=== PATIENT | female | born 1980 | race Two or more races ===

== ENCOUNTER 2025-02-10 18:47 | Emergency (ER) | payer OTHER ==
[~2025-02-10] VITALS: Ht 170.2 cm; Wt 54.4 kg
[2025-02-10] MEDS ORDERED: NURTEC ODT75 MG PO (18:58)
[2025-02-10] MEDS ORDERED: MONTELUKAST SODI4 M1 PO (18:59)
[2025-02-10] MEDS ORDERED: WELLBUTRIN SR150 MG PO (18:59)
[2025-02-10] MEDS ORDERED: XYZAL5 MG PO (18:59)
[2025-02-10] MEDS ORDERED: DEXAMETHASONE SODIUM PHOSPHATE 4 MG/ML VIAL IV ONE (19:30)
[2025-02-10] MEDS ORDERED: 0.9 % SODIUM CHLORIDE 1,000 ML IV SCH (19:30)
[2025-02-10] MEDS ORDERED: SUMATRIPTAN SUCCINATE 6 MG/0.5 ML VIAL SUBCUTANEO ONE ×3 (19:30→19:34)
[2025-02-10] MEDS ORDERED: MORPHINE SULFATE 4 MG/ML VIAL IV ONE (19:30)
[2025-02-10] MEDS ORDERED: METOPROLOL TARTRATE 25 MG TABLET PO ONE ×2 (19:30→19:32)
[2025-02-10] MEDS ORDERED: DIPHENHYDRAMINE HCL 50 MG/ML VIAL 1ML IV ONE (19:30)
[2025-02-10] MEDS ORDERED: ONDANSETRON HCL 2 MG/ML VIAL IV ONE (19:30)
[2025-02-10] MEDS ORDERED: DIPHENHYDRAMINE HCL 50 MG/ML VIAL 1ML ONE (19:31)
[2025-02-10] MEDS ORDERED: DEXAMETHASONE SODIUM PHOSPHATE 4 MG/ML VIAL ONE (19:32)
[2025-02-10] MEDS ORDERED: ONDANSETRON HCL 2 MG/ML VIAL ONE (19:32)
[2025-02-10] MEDS ORDERED: ACETAMINOPHEN 500 MG GEL..CAP PO ONE ×2 (19:40→19:45)
[2025-02-10 19:46] LABS: HEMATOCRIT 36.5 % (36.0-45.00); HEMOGLOBIN 12.6 g/dL (12.0-15.00); MEAN CELL VOLUME 91.4 fL (80.00-100.00); MEAN CORPUSCULAR HEMOGLOBIN 31.6 pg (27.00-32.0); MEAN CORPUSCULAR HGB CONC 34.6 g/dl (32.0-36.0); PLATELET COUNT 190 K/uL (150-450); RED BLOOD COUNT 3.99 M/uL (4.00-6.00); RED CELL DISTRIBUTION WIDTH 12.8 % (11.5-14.5)
[2025-02-10 19:59] LABS: INFLUENZA A AG NEGATIVE (NEGATIVE); POTASSIUM 3.83 mEq/L (3.5-5.1)
[2025-02-10 20:06] LABS: ALBUMIN 3.1 gm/dL (3.4-5.0); BILIRUBIN TOTAL 0.55 mg/dL (0.3-1.2); CALCIUM 9.2 mg/dL (8.5-10.1); CREATININE SERUM 1.05 mg/dL (0.55-1.02); GFR 57.47; GLOBULINA 3.8 G/DL (2.4-3.5); TOTAL PROTEIN 6.9 gm/dL (6.4-8.2)
[2025-02-10 21:16] LABS: COVID-19 AG NEGATIVE (NEGATIVE)
[2025-02-10 21:42] LABS: PH,URINE 7.5 (5.0-8.0); URINE APPEARANCE Clear; URINE BILIRRUBIN Negative (NEGATIVE); URINE BLOOD Trace; URINE COLOR Yellow; URINE GLUCOSE Negative (NEGATIVE); URINE LEUKOCYTE Large; URINE NITRATE Positive; URINE PROTEIN Trace (NEGATIVE)
[2025-02-10 21:46] LABS: URINE RBC 5.1 uL (0.0-20.8); URINE WBC 444.4 uL (0.0-23.2)
[2025-02-10 21:53] LABS: URINE KETONE 40 (NEGATIVE)
[2025-02-10 21:54] LABS: URINE BACTERIA > 9821.5 uL (0.0-1933); URINE CAST 1.32 uL (0.0-1.40)
[2025-02-10] MEDS ORDERED: CEFTRIAXONE SODIUM 2,000 MG VIAL ONE (21:59)
[2025-02-10] MEDS ORDERED: CEFTRIAXONE SODIUM 2,000 MG VIAL IV ONE (22:00)
[2025-02-10] MEDS ORDERED: CEPHALEXIN500 M1 PO (22:19)
== END 2025-02-10 22:35 | disposition home or self-care (01) ==
LOC: ER 18:47
PROVIDERS: General Practice
DX: G43.909 Migraine, unspecified, not intractable, without status migrainosus (principal); R50.9 Fever, unspecified; N39.0 Urinary tract infection, site not specified; Z20.822 Contact with and (suspected) exposure to COVID-19